=== PATIENT | male | born 2005 | race Two or more races ===

== ENCOUNTER 2025-04-03 01:12 | Emergency (ER) | payer BC, MEDICAID, SELFPAY ==
[2025-04-03 01:13] VITALS: BMI 42.5
[2025-04-03 02:59] VITALS: BP 169/111; PULSE 95; RESP 19; TEMP 36.8; O2SAT 97
--- NOTE | 2025-04-03 05:59 | EDNOTE_ITS ---
ED Epistaxis RME/HPI General Chief complaint: Epistaxis/Nasal Foreign Body Stated complaint: NOSE BLEEDING X15 MINUTES Time Seen by Provider: 04/03/25 03:05 Arrival date/time: 04/03/25 01:12 19M with no significant PMH presents to ED with spontaneous nosebleed lasting about 15 min. It stopped prior to arrival in ED. Limitations: no limitations Related Data Previous Rx's ?Medication ?Instructions ?Recorded acetaminophen 650 mg 650 mg PO Q8H PRN fever or p ain 12/24/19 tablet,extended release #30 tabs ibuprofen 600 mg tablet 600 mg PO Q8H PRN fever or p ain 12/24/19 #30 tabs ibuprofen 600 mg tablet 600 mg PO QID PRN pain #30 t abs 06/03/21 Allergies Allergy/AdvReac Type Severity Reaction Status Date / Time No Known Allergies Allergy Verified 04/03/25 01:13 Review of Systems Review of Systems Systems Reviewed: All systems reviewed, normal except as documented Constitutional Constitutional: Reports system reviewed and no additional complaints, except as documented, Denies fever(s) and Denies headache(s) ENT Ears, Nose, Mouth, and Throat: Reports as per HPI, Denies disequilibrium, Reports epistaxis and Denies headache(s) Cardiovascular Cardiovascular: Reports system reviewed and no additional complaints, except as documented, Denies chest pain and Denies dyspnea Respiratory Respiratory: Reports system reviewed and no additional complaints, except as documented, Denies cough and Denies dyspnea Gastrointestinal Gastrointestinal: Reports system reviewed and no additional complaints, except as documented, Denies abdominal pain, Denies nausea and Denies vomiting Neurologic Neurologic: Reports system reviewed and no additional complaints, except as documented, Denies confusion, Denies disequilibrium and Denies headache(s) Psychiatric Psychiatric: Denies confusion Past Medical History Past Medical History CARDIAC: Negative Congestive Heart Failure RESPIRATORY: Negative Chronic Obstructive Pulmonary Disease (COPD) GENITOURINARY: Negative Renal Disease ENDOCRINE: Negative Diabetes Mellitus Type 1 or Diabetes Mellitus Type 2 Social History SMOKING STATUS: Never smoker ED Exam General Limitations: Present no limitations General appearance: Present alert and in no apparent distress Head Head exam: Present atraumatic Eye Eye exam: Present normal appearance, PERRL and EOMI ENT ENT exam: Present normal exam, normal oropharynx and mucous membranes moist Neck Neck exam: Present normal inspection, full ROM and trachea midline Chest Chest inspection: Present normal inspection and symmetric chest wall rise Respiratory Respiratory exam: Present normal lung sounds bilaterally Cardiovascular Cardiovascular exam: Present regular rate, normal rhythm and normal heart sounds Abdominal Exam Abdominal exam: Present soft and normal bowel sounds Extremities Exam Extremities exam: Present normal inspection and full ROM Back Exam Back exam: Present normal inspection and full ROM Neurological Exam Neurological exam: Present alert, oriented X3 and CN II-XII intact Psychiatric Psychiatric exam: Present normal affect and normal mood Skin Skin exam: Present warm, dry, intact and normal color Course Quality Measures none Vital Signs Vital signs: Vital Signs Temperature 98.3 F 04/03/25 02:59 Pulse Rate 95 04/03/25 02:59 Respiratory Rate 19 04/03/25 02:59 Blood Pressure 169/111 H 04/03/25 02:59 Pulse Oximetry (%) 97 04/03/25 02:59 Oxygen Delivery Method Room Air 04/03/25 02:59 O2 at 97% on RA and WNLs Epistaxis MDM Narrative MDM Narrative:: 19M with no significant PMH presents to ED with spontaneous nosebleed lasting about 15 min. It stopped prior to arrival in ED. Physical exam reveals no active bleeding in nares. Normal WOB. Patient is afebrile, calm, and alert. Aircraft Load [employer] given. Patient declines preemptive cautery. Patient data External records reviewed:: [facility] previous records Clinical information provided by:: patient Social determinants that could affect healthcare access:: none Patient has the following chronic illnesses:: none How is presenting disease/condition affected by chronic disease/condition?: no chronic disease Evaluation data The following diagnostics were reviewed and interpreted by me:: other (specify) (none) Lab and/or radiology exams considered but not ordered:: not ordered Interpretation Summary: n/a Medications / Prescriptions Medications or Prescriptions considered but not ordered:: not ordered Medication administrations:: n/a Consultations Consultation(s) initiated? (list below): No Diagnosis Epistaxis Differential Diagnosis: nasal bone fracture, anterior epistaxis and posterior epistaxis Most likely diagnosis given after review of the tests above:: epiastaxis Admission Indicated Admission indicated?: not indicated Admission Request Was there a request for admission?: No Disposition Plan Disposition Plan: Discharge Discharge Attestation Discharge Attestation: The patient and all family members were given an opportunity to ask questions and understood the discharge instructions. Discharge instructions specifically effects, indications for sooner follow up or return to the emergency department, and the expected course of current diagnosis. Patient condition: Stable Discharge Plan Plan Patient Disposition: HOME (Self Care) Discharge Disposition comment: Stable Prescriptions/Referrals Prescriptions/Med Rec: No Action acetaminophen 650 mg tablet extended release 650 mg PO Q8H PRN (Reason: fever or pain) Qty: 30 0RF Rx Instructions: swallow whole; do not crush, chew, break, dissolve, cut, or open ibuprofen 600 mg tablet 600 mg PO Q8H PRN (Reason: fever or pain) Qty: 30 0RF Rx Instructions: prn pain / fever ibuprofen 600 mg tablet 600 mg PO QID PRN (Reason: pain) Qty: 30 0RF Problem List Clinical Impression: Epistaxis Patient/Caregiver Discharge Instructions Education Materials: ED Epistaxis (Adult) Additional Instructions: Please follow-up with PCP within 24-48 hours and return immediately if symptoms worsen. If bleeding again, pinch bridge of nose for 15 min and lean forward. Print Language: Canadian Stand Alone Forms: Patient Portal Info Letter LIVIA/NAOMI Supervising Physician WILLIAM Supervising Physician: Dr. Babb
== END 2025-04-03 03:12 | disposition home or self-care (01) ==
LOC: SERX 06:17
PROVIDERS: Emergency Provider Emergency Medicine; PCP Family Medicine
DX: R04.0 Epistaxis (principal)
CPT/HCPCS: 99281

== ENCOUNTER 2025-06-15 01:08 | Emergency (ER) | payer BC, MEDICAID, SELFPAY ==
[2025-06-15 01:19] VITALS: BP 150/92; PULSE 97; RESP 20; TEMP 37.1; O2SAT 96
--- NOTE | 2025-06-15 01:48 | XR_ITS ---
Examination: PA chest single view TECHNIQUE: Upright PA chest single view Date and time: June 15, 2025, 0206 hours, comparison February 11, 2012. INDICATIONS: Coughing vomiting blood today. FINDINGS: Normal heart size. No aspiration pneumonia. No pulmonary edema. Osseous structures are intact. IMPRESSION: No active disease.
--- NOTE | 2025-06-15 02:39 | EDNOTE_ITS ---
Upper Respiratory Inf. RME/HPI General Chief Complaint: General Adult/Misc Complain Stated Complaint: cough Time Seen by Provider: 06/15/25 01:17 Arrival date/time: 06/15/25 01:08 This is a case of 19-year-old male with no medical history came in in the emergency room due to productive cough for 3 days associated with low-grade fever and nasal congestion persistence of the symptoms now with a blood pH cough not vomiting this patient decided to sought consult here in the emergency room denies any abdominal pain nausea vomiting denies any shortness of breath no chest pain Limitations: no limitations Related Data Previous Rx's ?Medication ?Instructions ?Recorded acetaminophen 650 mg 650 mg PO Q8H PRN fever or p ain 12/24/19 tablet,extended release #30 tabs ibuprofen 600 mg tablet 600 mg PO Q8H PRN fever or p ain 12/24/19 #30 tabs ibuprofen 600 mg tablet 600 mg PO QID PRN pain #30 t abs 06/03/21 albuterol sulfate 90 mcg/actuation 2 puff inhalation Q 6H PRN 06/15/25 aerosol inhaler (Ventolin HFA) shortness of breath or wheezing #8.5 grams amoxicillin 875 mg-potassium 1 tab PO BID 10 days #20 tabs 06/15/25 clavulanate 125 mg tablet nirmatrelvir 300 mg (150 mg See Rx Instructions PO .CO MPLEX 06/15/25 x2)-ritonavir 100 mg tablet,dose #30 tabs pack (Paxlovid) promethazine-DM 6.25 mg-15 mg/5 mL 5 ml PO Q6H PRN cou gh #118 mL 06/15/25 oral syrup Allergies Allergy/AdvReac Type Severity Reaction Status Date / Time No Known Allergies Allergy Verified 06/15/25 01:15 Review of Systems Review of Systems Systems Reviewed: All systems reviewed, normal except as documented Constitutional Constitutional: Reports system reviewed and no additional complaints, except as documented, Reports as per HPI, Denies chills, Denies fatigue, Reports fever(s) and Denies snoring Cardiovascular Cardiovascular: Reports system reviewed and no additional complaints, except as documented, Reports as per HPI, Denies chest pain, Denies dyspnea and Denies dyspnea on exertion Respiratory Respiratory: Reports system reviewed and no additional complaints, except as documented, Reports change in phlegm color, Reports chest congestion, Reports cough, Denies dyspnea, Denies dyspnea on exertion, Denies excessive phlegm production, Reports hemoptysis, Denies pain on inspiration, Denies pain with cough, Denies snoring, Denies stridor and Denies wheezing Gastrointestinal Gastrointestinal: Reports system reviewed and no additional complaints, except as documented, Reports as per HPI, Denies abdominal pain, Denies nausea and Denies vomiting Genitourinary Genitourinary: Reports system reviewed and no additional complaints, except as documented and Reports as per HPI Musculoskeletal Musculoskeletal: Reports system reviewed and no additional complaints, except as documented and Reports as per HPI Neurologic Neurologic: Reports system reviewed and no additional complaints, except as documented and Reports as per HPI Endocrine Endocrine: Denies fatigue Allergic/Immunologic Allergic/Immunologic: Denies wheezing Past Medical History Past Medical History CARDIAC: Negative Congestive Heart Failure RESPIRATORY: Negative Chronic Obstructive Pulmonary Disease (COPD) GENITOURINARY: Negative Renal Disease ENDOCRINE: Negative Diabetes Mellitus Type 1 or Diabetes Mellitus Type 2 Social History SMOKING STATUS: Never smoker ED Exam General Limitations: Present no limitations General appearance: Present alert, in no apparent distress and other (Patient is awake alert oriented not in distress nontoxic looking well-hydrated well- nourished) Head Head exam: Present atraumatic, normocephalic and normal inspection Eye Eye exam: Present normal appearance, PERRL and EOMI ENT ENT exam: Present normal exam, normal oropharynx, mucous membranes moist and other (HEENT exam is normal and unremarkable) Neck Neck exam: Present normal inspection, full ROM and trachea midline; Absent tenderness, meningismus, lymphadenopathy or thyromegaly Chest Chest inspection: Present normal inspection and symmetric chest wall rise; Absent tenderness Respiratory Respiratory exam: Present normal lung sounds bilaterally and other (Noted rhonchi bilateral lower lung no crackles no rales no retraction no stridor no wheezing not in distress); Absent respiratory distress, wheezes, stridor, accessory muscle use or prolonged expiratory phase Expanded Respiratory Exam Location: Left: rhonchi and Lower: rhonchi Cardiovascular Cardiovascular exam: Present regular rate, normal rhythm and normal heart sounds; Absent bradycardia, tachycardia, irregular rhythm or systolic murmur Abdominal Exam Abdominal exam: Present soft and normal bowel sounds; Absent distention, tenderness, guarding, rebound, rigidity, diminished bowel sounds, hyperactive bowel sounds or hypoactive bowel sounds Extremities Exam Extremities exam: Present normal inspection and full ROM Back Exam Back exam: Present normal inspection and full ROM Neurological Exam Neurological exam: Present alert, oriented X3, CN II-XII intact, normal gait and reflexes normal; Absent motor sensory deficit Psychiatric Psychiatric exam: Present normal affect and normal mood Skin Skin exam: Present warm, dry, intact and normal color Course Quality Measures none Orders Category Date Time Status Bedside COVID-19 Antigen Test NOW Care 06/15/25 01:48 Active Bedside Influenza A&B Antigen Test NOW Care 06/15/25 01:48 Completed XR chest 1V portable Stat Exams 06/15/25 01:48 Taken Vital Signs Vital signs: Vital Signs Temperature 98.7 F 06/15/25 01:19 Pulse Rate 97 06/15/25 01:19 Respiratory Rate 20 06/15/25 01:19 Blood Pressure 150/92 H 06/15/25 01:19 Pulse Oximetry (%) 96 06/15/25 01:19 Patient is afebrile not tachycardic not tachypneic BP stable not hypoxic oxygen saturation is 96% in room Upper Respiratory Infection MDM Narrative MDM Narrative:: This is a case of 19-year-old male with no medical history came in in the emergency room due to productive cough for 3 days associated with low-grade fever and nasal congestion persistence of the symptoms now with a blood pH cough not vomiting this patient decided to sought consult here in the emergency room denies any abdominal pain nausea vomiting denies any shortness of breath no chest pain physical examination patient is awake alert oriented not in distress nontoxic looking well-hydrated well-nourished no signs and symptoms of sepsis dehydration or hypoxia vital signs stable BP stable not tachycardic not tachypneic not hypoxic and afebrile lungs sound noted with rhonchi on both lower lung field no crackles no rales no retraction no stridor no wheezing the rest of the physical examination neurological exam is normal and unremarkable chest x- ray showed infiltrates on both lower lung suggestive of pneumonia patient is positive for COVID at this point patient will be discharged home in stable condition there is no signs and symptoms of hypoxia patient is afebrile not in distress patient was discharged with Augmentin for pneumonia Paxlovid for COVID infection Ventolin inhaler and cough medication patient was advised to continue to monitor himself for any worsening symptoms or any shortness of breath fever chills retraction wheezing return to the emergency room immediately or call 911 self quarantine was also advised to the patient and keep hydrated Patient was discharged with comfortable condition walking with stable gait. Patient verbalized no further complains explained diagnosis and answered patient question. Patient is comfortable with the proposed management plan including the need to follow up with his/her primary care physician and any specialist if applicable Discussed patient for any urgent condition or worsening sx, He/She needed to go to emergency room immediately or call 911. Patient acknowledge the responsibility to follow up as instructed and to monitor her/his symptoms. For any persistence of the symptoms for more than 3-5 days return precaution advised. Discussed the result of the test and was given printed discharge instruction Patient data External records reviewed:: [facility] previous records Clinical information provided by:: patient Social determinants that could affect healthcare access:: none Patient has the following chronic illnesses:: None How is presenting disease/condition affected by chronic disease/condition?: no chronic disease Evaluation data The following diagnostics were reviewed and interpreted by me:: lab results and radiology exam(s) Lab and/or radiology exams considered but not ordered:: Reviewed Interpretation Summary: Reviewed Medications / Prescriptions Medications or Prescriptions considered but not ordered:: Given Medication administrations:: Given Consultations Consultation(s) initiated? (list below): No Diagnosis Upper Respiratory Differential Diagnosis: upper respiratory infection, otitis media, sinusitis, viral infection, bronchitis, influenza, pharyngitis and other (Pneumonia) Most likely diagnosis given after review of the tests above:: COVID-pneumonia Admission Indicated Admission indicated?: not indicated Explain why admission is indicated or not indicated:: Not indicated Admission Request Was there a request for admission?: No Admission Attestation Admission request attestation: Not indicated Disposition Plan Disposition Plan: Discharge Discharge Attestation Discharge Attestation: The patient and all family members were given an opportunity to ask questions and understood the discharge instructions. Discharge instructions specifically effects, indications for sooner follow up or return to the emergency department, and the expected course of current diagnosis. Patient condition: Stable Discharge Plan Plan Patient Disposition: HOME (Self Care) Patient condition on transfer: Stable Prescriptions/Referrals Prescriptions/Med Rec: New amoxicillin-pot clavulanate 875-125 mg tablet 1 tab PO BID 10 Days Qty: 20 0RF Paxlovid 300 mg (150 mg x 2)-100 mg tablets,dose pack See Rx Instructions .ROUTE .COMPLEX Qty: 30 0RF Rx Instructions: take TWO 150 mg tablets of nirmatrelvir with ONE 100 mg tablet of ritonavir twice daily for 5 days albuterol sulfate [Ventolin HFA] 90 mcg/actuation HFA aerosol inhaler 2 puff inhalation Q6H PRN (Reason: shortness of breath or wheezing) Qty: 8.5 0RF promethazine-DM 6.25-15 mg/5 mL syrup 5 ml PO Q6H PRN (Reason: cough) Qty: 118 0RF No Action acetaminophen 650 mg tablet extended release 650 mg PO Q8H PRN (Reason: fever or pain) Qty: 30 0RF Rx Instructions: swallow whole; do not crush, chew, break, dissolve, cut, or open ibuprofen 600 mg tablet 600 mg PO Q8H PRN (Reason: fever or pain) Qty: 30 0RF Rx Instructions: prn pain / fever ibuprofen 600 mg tablet 600 mg PO QID PRN (Reason: pain) Qty: 30 0RF Referrals: Vero Bennett [employer] [Primary Care Provider] - In 1 week Problem List Clinical Impression: COVID, Pneumonia Patient/Caregiver Discharge Instructions Education Materials: 2019-nCoV, COVID-19 Home Care, ED Pneumonia (Adult) Additional Instructions: Follow-up with your primary care physician in 2 days for reevaluation worsening symptoms persistence in symptoms or any emergent concern call 911 or go to the nearest emergency room take your medication as directed finish the course of antibiotic take vitamin C and zinc daily self quarantine per CDC protocol increase water intake keep hydrated monitor temperature every 4-6 hours take Tylenol or Motrin as needed for fever or pain monitor your oxygen saturation and if your oxygen saturation is less than 90% return to the emergency room immediately or call [phone] Print Language: Finnish Stand Alone Forms: Rain Award Info., Patient Portal Info Letter PA/MANDARIN SPEAKING NANNY Supervising Physician PA/MANDARIN SPEAKING NANNY Supervising Physician: dr [email or web address]
== END 2025-06-15 02:39 | disposition home or self-care (01) ==
PROVIDERS: Emergency Provider Family Medicine; PCP Nurse Practitioner Family
DX: U07.1 COVID-19 (principal); J12.82 Pneumonia due to coronavirus disease 2019
CPT/HCPCS: 71045; 80053; 85025; 87400; 87811; 99283